=== PATIENT | male | born 1995 | race Caucasian/White ===

== ENCOUNTER 2023-12-17 16:44 | Emergency (ER) | payer BC ==
[~2023-12-17] VITALS: Ht 160 cm; Wt 79.4 kg
[2023-12-17 17:08] VITALS: O2SAT 97
[2023-12-17 20:03] VITALS: BP 101/70; PULSE 66; RESP 18; TEMP 98.1
== END 2023-12-17 20:03 | disposition home or self-care (01) ==
LOC: ER 16:44
DX: M25.511 Pain in right shoulder (principal)
CPT/HCPCS: 73030; 73200; 99284